=== PATIENT | female | born 1945 | race Two or more races ===

== ENCOUNTER 2018-01-29 11:49 | Outpatient (CLI) | payer OTHER ==
[~2018-01-29 11:49] MED LIST: ARICEPT5 MG PO; ATACAND32 MG PO; LIPITOR40 MG PO; LISINOPRIL20 MG PO; SUPPORT-5001 CAP PO; TOPROL XL25 MG PO; TRICOR48 MG PO; ZANTAC150 MG PO
== END 2018-01-29 12:00 | disposition home or self-care (01) ==
LOC: RAD 11:49
DX: M25.511 Pain in right shoulder (principal)

== ENCOUNTER 2021-08-22 10:18 | Emergency (ER) | payer OTHER ==
[~2021-08-22] VITALS: Ht 152.4 cm; Wt 59.0 kg
[2021-08-22] MEDS ORDERED: ARICEPT10 MG (10:50)
[2021-08-22] MEDS ORDERED: LOSARTAN POTASS50 MG PO (10:51)
[2021-08-22] MEDS ORDERED: PEPCID AC20 MG (10:52)
[2021-08-22] MEDS ORDERED: TYLOPHEN500 MG PO (10:53)
[2021-08-22] MEDS ORDERED: MELATONIN5 M1 (10:53)
[2021-08-22] MEDS ORDERED: NABUMETONE500 MG PO (10:54)
[2021-08-22] MEDS ORDERED: GLUMETZA500 MG (10:54)
[2021-08-22] MEDS ORDERED: LORAZEPAM1 MG PO (10:54)
== END 2021-08-22 17:48 | disposition home or self-care (01) ==
LOC: ER 10:18
DX: K57.92 Diverticulitis of intestine, part unspecified, without perforation or abscess without bleeding (principal); E11.9 Type 2 diabetes mellitus without complications; I10 Essential (primary) hypertension; Z88.8 Allergy status to other drugs, medicaments and biological substances

== ENCOUNTER 2022-02-11 12:34 | Emergency (ER) | payer OTHER ==
[~2022-02-11] VITALS: Ht 162.6 cm; Wt 59.0 kg
[~2022-02-11 12:34] MED LIST changes: +ARICEPT10 MG; +GLUMETZA500 MG; +LORAZEPAM1 MG PO; +LOSARTAN POTASS50 MG PO; +MELATONIN5 M1; +NABUMETONE500 MG PO; +PEPCID AC20 MG; +TYLOPHEN500 MG PO
[2022-02-11] MEDS ORDERED: VALSARTAN320 MG (12:49)
[2022-02-11] MEDS ORDERED: LEXAPRO20 MG PO (12:51)
[2022-02-11] MEDS ORDERED: METFORMIN HCL500 MG (12:51)
[2022-02-11] MEDS ORDERED: LEVOTHYROXINE50 MC1 PO (12:51)
[2022-02-11] MEDS ORDERED: ATIVAN1 M1 PO (12:52)
[2022-02-11] MEDS ORDERED: NABUMETONE500 MG PO (12:53)
== END 2022-02-11 16:35 | disposition home or self-care (01) ==
LOC: ER 12:34
DX: K52.9 Noninfective gastroenteritis and colitis, unspecified (principal); Z88.8 Allergy status to other drugs, medicaments and biological substances; E11.9 Type 2 diabetes mellitus without complications; Z79.84 Long term (current) use of oral hypoglycemic drugs; I10 Essential (primary) hypertension; E03.9 Hypothyroidism, unspecified; F03.90 Unspecified dementia, unspecified severity, without behavioral disturbance, psychotic disturbance, mood disturbance, and anxiety

== ENCOUNTER 2022-03-02 08:30 | Emergency (ER) | payer OTHER ==
[~2022-03-02] VITALS: Ht 152.4 cm; Wt 50.3 kg
[~2022-03-02 08:30] MED LIST changes: +ATIVAN1 M1 PO; +LEVOTHYROXINE50 MC1 PO; +LEXAPRO20 MG PO; +METFORMIN HCL500 MG; +VALSARTAN320 MG
[2022-03-02] MEDS ORDERED: VALSARTAN-HCTZ1 EAC4 PO (08:46)
[2022-03-02] MEDS ORDERED: METFORMIN HCL500 M3 PO (08:50)
== END 2022-03-02 15:56 | disposition home or self-care (01) ==
LOC: ER 08:30
DX: K52.9 Noninfective gastroenteritis and colitis, unspecified (principal); Z88.6 Allergy status to analgesic agent; E11.9 Type 2 diabetes mellitus without complications; Z79.84 Long term (current) use of oral hypoglycemic drugs; E78.00 Pure hypercholesterolemia, unspecified; I10 Essential (primary) hypertension; N20.0 Calculus of kidney

== ENCOUNTER 2023-12-01 11:45 | Emergency (ER) | payer OTHER ==
[~2023-12-01] VITALS: Ht 167.6 cm; Wt 90.7 kg
[~2023-12-01 11:45] MED LIST changes: +METFORMIN HCL500 M3 PO; +VALSARTAN-HCTZ1 EAC4 PO
[2023-12-01] MEDS ORDERED: KETOROLAC TROMETHAMINE 60 MG VIAL IM STA (12:25)
== END 2023-12-01 14:06 | disposition home or self-care (01) ==
LOC: ER 11:45
DX: S80.02XA Contusion of left knee, initial encounter (principal); X58.XXXA Exposure to other specified factors, initial encounter; Y93.89 Activity, other specified; Y92.89 Other specified places as the place of occurrence of the external cause; Y99.8 Other external cause status; I10 Essential (primary) hypertension; E11.9 Type 2 diabetes mellitus without complications; Z79.84 Long term (current) use of oral hypoglycemic drugs; Z88.5 Allergy status to narcotic agent
CPT/HCPCS: 73560; 96372; 99283; J1885

== ENCOUNTER 2025-01-29 07:13 | Emergency (ER) | payer OTHER ==
[~2025-01-29] VITALS: Ht 152.4 cm; Wt 65.8 kg
[2025-01-29] MEDS ORDERED: GLIPIZIDE ER2.5 MG PO (08:08)
[2025-01-29] MEDS ORDERED: CITALOPRAM HBR40 MG PO (08:09)
[2025-01-29] MEDS ORDERED: LOSARTAN-HCTZ1 EAC2 PO (08:09)
[2025-01-29] MEDS ORDERED: ATORVASTATIN CA40 MG PO (08:10)
[2025-01-29] MEDS ORDERED: FENOFIBRATE145 MG PO (08:10)
[2025-01-29] MEDS ORDERED: MEMANTINE HCL10 MG PO (08:10)
[2025-01-29] MEDS ORDERED: SUCRALFATE 1 G TABLET PO ONE (08:30)
[2025-01-29 09:32] LABS: BUN CREA RATIO 17.0 (7.0-25.0); CREATININE SERUM 1.03 mg/dL (0.55-1.02); GFR 51.69; GLUCOSE FASTING 145.0 mg/dL (65-100); OSMOLALITY SERUM 276.0 MOSM/KG (275-295)
[2025-01-29 10:04] LABS: URINE APPEARANCE Clear; URINE BILIRRUBIN Negative (NEGATIVE); URINE BLOOD Negative; URINE COLOR Yellow; URINE GLUCOSE Negative (NEGATIVE); URINE KETONE Negative (NEGATIVE); URINE LEUKOCYTE Negative; URINE NITRATE Negative; URINE PROTEIN Negative (NEGATIVE); URINE UROBILINOGEN 0.2 E.U./dl
[2025-01-29 10:09] LABS: URINE BACTERIA 1559.8 uL (0.0-1933); URINE EPITHELIAL CELLS 1.6 uL (0.0-38.8); URINE WBC 5.0 uL (0.0-23.2)
[2025-01-29 10:11] LABS: URINE CAST 0.14 uL (0.0-1.40); URINE RBC 0.7 uL (0.0-20.8)
[2025-01-29 10:37] LABS: BASO % 0.4 % (0.1-1.2); EOS # 0.10 (0.04-0.54); EOS % 1.2 % (0.7-7.0); LYMPH # 1.77 (1.18-3.74); LYMPH % 21.6 % (19.3-53.1); MEAN PLATELET VOLUME 11.10 fl (9.4-12.4); MONO # 0.46 (0.24-0.82); MONO % 5.6 % (4.7-12.5); NEUT # 5.81 (1.56-6.13); NEUT % 71.0 % (34.0-71.1); RED CELL DISTRIBUTION WIDTH 11.9 % (11.6-14.4)
== END 2025-01-29 11:56 | disposition home or self-care (01) ==
LOC: ER 07:13
PROVIDERS: Emergency Medicine
DX: R10.9 Unspecified abdominal pain (principal); I10 Essential (primary) hypertension; E11.9 Type 2 diabetes mellitus without complications; Z79.84 Long term (current) use of oral hypoglycemic drugs; Z88.6 Allergy status to analgesic agent; Z88.8 Allergy status to other drugs, medicaments and biological substances